=== PATIENT | female | born 2000 | race Caucasian/White ===

== ENCOUNTER 2018-03-06 16:20 | Emergency (ER) | payer OTHER ==
--- NOTE | 2018-03-06 16:52 | EDPHY ---
General Time Seen by Provider: 03/06/18 16:51 Narrative: CLINICAL IMPRESSION: Right peroneus brevis avulsion fracture of the 5th metatarsal ASSESSMENT/PLAN: Patient is a 17-year-old female who presents with complaint of right foot pain after sustaining an eversion injury 3 days prior. Patient is nontoxic-appearing , she is in no acute distress on arrival. Foot x-rays reveal right peroneus brevis fracture of the 5th metatarsal. There was no evidence of open fracture, dislocation, compartment syndrome, infectious or neurovascular compromise. Her history and physical examination is most consistent with acute, right peroneus brevis avulsion fracture of the 5th metatarsal. The patient was placed in a posterior short-leg splint and crutches were provided. CMS intact post splint placement. She will otherwise continue Tylenol and ibuprofen. Podiatry referral was provided, she will remain nonweightbearing until follow-up. Return precautions discussed-patient to return to the emergency Department for significantly worsening or uncontrolled pain, significant swelling, numbness or tingling of the extremity, paleness or coolness of her digits, fever or for any other concerning symptom. The patient verbalizes understanding and she is in agreement with this plan. DIFFERENTIAL DX: Contusion, sprain, fracture, dislocation, compartment syndrome ED COURSE: 17 18: Case discussed with Dr. Brown Procedure: Splint placement. A posterior short-leg splint was applied. After application of the splint I returned and re-examined the patient. The splint was adequately immobilizing the joint and distal to the splint the patient's circulation and sensation was intact. CHIEF COMPLAINT: Right foot pain HPI: Patient is a 17-year-old female who presents to the emergency department with complaints of right-sided foot pain after sustaining and eversion injury 3 days prior. Patient reports she was walking when she accidentally rolled her ankle. That day she did experience significant pain, difficulty with ambulation however she was able to ambulate. Over the last several days the bruising has become quite significant, complains of mild associated edema. She has been able to ambulate and the pain has been improving. She has been taking Tylenol and ibuprofen for pain. She has also been using an Aircast that she had from an old injury. She denies any previous injuries to this extremity. Denies any numbness or tingling. PAST MEDICAL HISTORY: Hypothyroid Pertinent Past Surgical History: Denies Family History: Noncontributory Social History: Denies smoking or illicit drug use ROS: A full 10 point review of systems was negative except for those mentioned in HPI. PHYSICAL EXAM: General Appearance: Patient is well-appearing, no acute distress. HEENT: Normocephalic, atraumatic. Bilateral external ears are normal. Nares are clear. Oropharynx is clear and mucosa is moist. Eyes: PERRLA, no acute vision change, nystagmus, swelling, discharge, pain or photosensitivity. Conjunctiva pink, no pallor or injection Neck: Supple, nontender, no lymphadenopathy, no midline pain, FROM, no meningismus. Respiratory: There are no retractions, lungs are clear to auscultation. Cardiac: Regular rate and rhythm, no murmurs or gallops. Gastrointestinal: Abdomen is soft, nontender, bowel sounds normal, no masses/ hernia, no rigidity, guarding or focal peritoneal findings. Skin: Warm, dry, no rashes, no nodules on palpation. Upper Extremities: Intact distal pulses, Full range of motion intact, no tenderness, no ecchymosis or edema Lower Extremities: Right lower extremity with moderate amount of ecchymosis inferior to the lateral malleolus into the dorsal aspect of the foot. Patient with no medial malleolar tenderness, very mildly tender inferior to the lateral malleolus with associated swelling. Patient also tender at the base of the 5th metatarsal. She has no 1st metatarsal tenderness. Full range of motion is intact. Two point discrimination is intact at each toe. There is no navicular tenderness to palpation. Intact distal pulses, No edema, No tenderness, No cyanosis, full range of motion intact, No calf tenderness bilaterally. MEDICAL DECISION MAKING: Patient was seen independently. Secondary supervising physician at time of evaluation was Dr. Brown. Diagnosis: Acute, right peroneus brevis avulsion fracture of the 5th metatarsal. New, requires workup Summary: See Assessment and Plan for summary of ED visit Clinical lab tests: Not applicable. Independent visualization of images, tracing, or specimens: Yes. Decision to obtain medical records or history from someone other than the patient: No Review / Summarize previous medical records: None available Discussed patient with another provider: Yes, Dr. Brown Patient Progress: Stable, discharged. - Diagnostics Imaging Results: Imaging Impressions Foot X-Ray 03/06/18 16:28 Impression: Peroneus brevis avulsion at the base of the fifth metatarsal. - History Smoking Status: Never smoked - Objective Vital Signs: Initial Vital Signs Temperature (C) 36.8 C 03/06/18 16:21 Heart Rate 96 03/06/18 16:21 Respiratory Rate 18 03/06/18 16:21 Blood Pressure 119/78 03/06/18 16:21 O2 Sat (%) 99 03/06/18 16:21 O2 Delivery Mode Room Air Allergies/Adverse Reactions: No Known Allergies Allergy (Unverified 03/06/18 16:25) Home Medications: Medication Instructions Recorded metFORMIN HCL [Glucophage 500 mg 500 mg PO 03/06/18 (*)] Departure - Departure Disposition: Home, Routine, Self-Care Clinical Impression: Fracture of fifth metatarsal bone Qualifiers: Encounter type: initial encounter Fracture type: closed Fracture alignment: nondisplaced Laterality: right Qualified Code(s): S92.354A - Nondisplaced fracture of fifth metatarsal bone, right foot, initial encounter for closed fracture Condition: Good Instructions: Foot Fracture in Adults (ED) Additional Instructions: DISCHARGE INSTRUCTIONS FROM YOUR DOCTOR Thank you for visiting our emergency department today. Please keep in mind that discharge from the emergency department does not mean that there is nothing wrong - it simply means that we have not identified an emergency condition that requires further evaluation or treatment in the hospital. You should always plan to follow up with primary care for re-evaluation of your condition in the next 2-3 days. Rest, ice (on and off), elevate the foot and ankle as much possible above the level of the heart to decrease pain and swelling. Wear the splint as applied until you follow up with Podiatry, do not get this wet. Nonweightbearing until follow-up with Podiatry, user crutches. For pain, Ibuprofen 400 mg every 6 hours. Do not exceed 2400 mg of ibuprofen in 24 hours. Stop taking this if it upsets her stomach. Tylenol 500 mg every 6 hours. Do not exceed 3000 mg in a 24-hour period. Continue your regular medications as prescribed. Return for increased pain or swelling, numbness, tingling or foot or toes, calf pain, paleness or coolness of the foot or toes or for any worsening or worrisome symptoms. People present with illnesses and injuries in different ways, and it is always possible that we have missed something. You may always return for re-evaluation if symptoms worsen or if they are not improving or if you develop new/different symptoms. Again, thank you for choosing our emergency department. We hope that you feel better. Referrals: Baltazar Judge MD [Primary Care Provider] - As per Instructions
[2018-03-06 17:57] VITALS: BP 121/68
== END 2018-03-06 17:58 | disposition home or self-care (01) ==
PROC: 2W3QX1Z Immobilization of Right Lower Leg using Splint (ICD-10-PCS; principal; 2018-03-06)
DX: S92.354A Nondisplaced fracture of fifth metatarsal bone, right foot, initial encounter for closed fracture (principal); X58.XXXA Exposure to other specified factors, initial encounter

== ENCOUNTER 2018-04-05 03:23 | Emergency (ER) | payer OTHER ==
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
[2018-04-05] MEDS ORDERED: ONDANSETRON 4 MG/2 ML VIAL ONE (03:38)
[2018-04-05] MEDS ORDERED: NS 1,000 ML IV ONE ×2 (03:41→08:11)
[2018-04-05] MEDS ORDERED: ONDANSETRON 4 MG/2 ML VIAL IVP ONE (03:41)
[2018-04-05 03:57] LABS: PLATELET COUNT 256 10^3/uL (150-400)
[2018-04-05] MEDS ORDERED: AZITHROMYCIN 250 MG TAB PO ONE (11:58)
[2018-04-05] MEDS ORDERED: ONDANSETRON DISINTEGRATING 4 MG TAB PO ONE (11:58)
[2018-04-05 12:35] VITALS: BP 118/76
== END 2018-04-05 12:51 | disposition home or self-care (01) ==
LOC: SANE 12:51
DX: T74.21XA Adult sexual abuse, confirmed, initial encounter (principal); F10.920 Alcohol use, unspecified with intoxication, uncomplicated; E86.9 Volume depletion, unspecified; Y90.8 Blood alcohol level of 240 mg/100 ml or more; Y07.9 Unspecified perpetrator of maltreatment and neglect; Y99.9 Unspecified external cause status
CPT/HCPCS: 80305; 96374; G0480; J0696; J2405

== ENCOUNTER 2018-05-24 04:08 | Emergency (ER) | payer OTHER ==
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
[2018-05-24 07:53] VITALS: BP 101/62
== END 2018-05-24 07:44 | disposition home or self-care (01) ==
DX: F10.929 Alcohol use, unspecified with intoxication, unspecified (principal)